=== PATIENT | female | born 2000 | race Caucasian/White ===

== ENCOUNTER 2021-01-27 23:01 | Emergency (ER) | payer OTHER ==
[~2021-01-27] VITALS: Ht 154.9 cm; Wt 68.0 kg
[2021-01-27 23:45] LABS: HEMATOCRIT 29.8 % (37.0-47.0); HEMOGLOBIN 9.4 gm/dL (12.0-15.0); MCH 25.6 pg (26.0-34.0); MCHC 31.6 g/dL (28.0-37.0); MCV 81.1 fL (80.0-100.0); RBC 3.68 mil/uL (4.20-5.00); RDW 16.2 % (10.5-14.5); WBC 18.2 thou/uL (4.0-11.0)
[2021-01-27 23:49] LABS: CALCIUM 9.4 mg/dL (8.5-10.1); CREATININE 0.9 mg/dL (0.6-1.0)
[2021-01-27 23:51] LABS: POTASSIUM 3.9 mmol/L (3.5-5.1)
[2021-01-27 23:53] LABS: PLATELET COUNT 639 thou/uL (150-400)
[2021-01-27 23:54] LABS: ALBUMIN 3.4 g/dL (3.4-5.0); TOTAL BILIRUBIN 0.3 mg/dL (0.2-1.0); TOTAL PROTEIN 7.6 g/dL (6.4-8.2)
[2021-01-28 00:42] LABS: ABSOLUTE NEUTROPHILS 10.9 thou/uL (1.4-8.2); LARGE PLATELETS FEW
[2021-01-28 00:43] LABS: ANISOCYTOSIS 2+; PLATELET ESTIMATE MARKEDLY INCREASED
[2021-01-28 02:12] LABS: URINE BILIRUBIN 1+ (Negative); URINE BLOOD 3+ (Negative); URINE CLARITY SL CLOUDY; URINE COLOR YELLOW; URINE GLUCOSE-RANDOM* NEGATIVE (Negative); URINE KETONES 3+ (Negative); URINE NITRITE-REFLEX NEGATIVE (Negative); URINE PROTEIN (DIPSTICK) TRACE (Negative); URINE SPECIFIC GRAVITY 1.025 (1.005-1.035); URINE UROBILINOGEN 0.2 E.U./dl (0.2-1.0)
[2021-01-28 02:25] LABS: ICTOTEST (BILI CONFIRMATORY) Positive (Negative); URINE LEUKOCYTES-REFLEX 3+ (Negative)
[2021-01-28 02:36] LABS: CASTS None Seen /LPF (None Seen); MUCUS 0-3 Light strn/LPF (None Seen); SQUAMOUS 4-10 Moderate /LPF (0-3)
[2021-01-28 02:37] LABS: CRYSTALS None Seen /LPF (None Seen); URINE RBC >20 Many /HPF (NONE SEEN); URINE WBC-REFLEX >25 Many /HPF (0-5); WBC CLUMPS Few (None Seen)
[2021-01-28] MEDS ORDERED: FLOMAX0.4 MG PO (03:52)
[2021-01-28] MEDS ORDERED: HYDROCODON-ACE1 EAC7 PO (03:52)
[2021-01-28 04:35] VITALS: BP 121/68
== END 2021-01-28 04:12 | disposition home or self-care (01) ==
LOC: ER 23:01
PROVIDERS: Emergency Medicine
DX: N20.0 Calculus of kidney (principal); Z88.8 Allergy status to other drugs, medicaments and biological substances